=== PATIENT | female | born 1945 | race African-American/Black ===

== ENCOUNTER → 2019-02-25 | Outpatient (CLI) | payer MEDICARE, OTHER ==
[~2019-02-25] MED LIST: ASPI-1393 PO; ATOR20TA PO; BARIUM SULFATE 176 GM SUSP.RECON ONE; EZ-HD SUSPENSION(BARIUM SULFATE 340GM) PO ONE; FERR-63 PO; NEBI10TA2 PO; POTA20TA12 PO; PRAS10TA6 PO
== END | disposition home or self-care (01) ==
LOC: RAD 08:48
DX: R11.0 Nausea (principal); R13.10 Dysphagia, unspecified
CPT/HCPCS: 74246

== ENCOUNTER 2019-03-26 11:10 | Emergency (ER) | payer MEDICARE, OTHER ==
[~2019-03-26] VITALS: Ht 160 cm; Wt 64.0 kg
[~2019-03-26 11:10] MED LIST changes: -BARIUM SULFATE 176 GM SUSP.RECON ONE; -EZ-HD SUSPENSION(BARIUM SULFATE 340GM) PO ONE
[2019-03-26] MEDS ORDERED: METHYLPREDNISOLONE SOD SUCC 125 MG/2 ML VIAL IV ONE (12:30)
[2019-03-26] MEDS ORDERED: FAMOTIDINE 20MG/2ML VIAL IV ONE (12:30)
[2019-03-26] MEDS ORDERED: DIPHENHYDRAMINE 50MG/ML VIAL IV ONE (12:30)
[2019-03-26 13:16] LABS: BASOPHILS % 0.4 % (0.0-2.0); HEMATOCRIT. 41.4 % (36.0-48.0); HEMOGLOBIN. 13.8 g/dL (12.0-16.0); LYMPHOCYTES % 12.5 % (20.0-50.0); MEAN CORPUSCULAR HEMOGLOBIN 33.5 pg (28.0-32.0); MEAN CORPUSCULAR VOLUME 100.4 fL (81.0-99.0); MEAN PLATELET VOLUME 11.2 fl (7.4-10.4); MONOCYTES % 3.3 % (2.0-8.0); NEUTROPHILS % 83.8 % (40.0-76.0); PLATELET 129 x1000/uL (130-400); RED BLOOD CELL COUNT 4.12 mill/uL (4.2-5.4)
[2019-03-26 13:23] LABS: CHLORIDE 107 mEq/L (98-107)
[2019-03-26 14:30] VITALS: BP 182/92
== END 2019-03-26 14:44 | disposition home or self-care (01) ==
LOC: ER 11:10
DX: T78.49XA Other allergy, initial encounter (principal); X58.XXXA Exposure to other specified factors, initial encounter; K21.9 Gastro-esophageal reflux disease without esophagitis; E78.00 Pure hypercholesterolemia, unspecified; I10 Essential (primary) hypertension; Z98.890 Other specified postprocedural states; Z79.82 Long term (current) use of aspirin; Z79.899 Other long term (current) drug therapy; Z91.041 Radiographic dye allergy status; Z88.1 Allergy status to other antibiotic agents
CPT/HCPCS: 36415; 80053; 85025; 96374; 96375; 99283; J1200; J2930; J3490

== ENCOUNTER 2021-03-19 12:06 | Inpatient (IN) | payer MEDICARE, OTHER ==
[~2021-03-19] VITALS: Ht 160 cm; Wt 64.0 kg
[~2021-03-19 12:06] MED LIST changes: -ASPI-1393 PO; +ASPI-1497 PO
[2021-03-19] MEDS ORDERED: FUROSEMIDE 40MG/4ML VIAL IVP ONE (12:30)
[2021-03-19 12:42] LABS: BASOPHILS % 0.7 % (0.0-2.0); EOSINOPHILS % 0.3 % (0.0-5.0); HEMATOCRIT. 33.1 % (36.0-48.0); HEMOGLOBIN. 10.8 g/dL (12.0-16.0); LYMPHOCYTES % 31.2 % (20.0-50.0); MEAN CORPUSCULAR HEMOGLOBIN 33.2 pg (28.0-32.0); MEAN CORPUSCULAR VOLUME 101.7 fL (81.0-99.0); MEAN PLATELET VOLUME 11.4 fl (7.4-10.4); MONOCYTES % 9.1 % (2.0-8.0); NEUTROPHILS % 58.7 % (40.0-76.0); PLATELET 134 x1000/uL (130-400); RED BLOOD CELL COUNT 3.26 mill/uL (4.2-5.4); RED CELL DISTRIBUTION WIDTH 14.3 % (11.6-14.6)
[2021-03-19 12:50] LABS: CHLORIDE 105 mEq/L (98-107)
[2021-03-19] MEDS ORDERED: ALBUTEROL (0.083%) 2.5MG/3ML NEB HHN STA (12:54)
[2021-03-19] MEDS ORDERED: IPRATROPIUM BROMIDE (0.02%) 0.5MG/2.5ML NEB HHN STA (12:54)
[2021-03-19] MEDS ORDERED: FUROSEMIDE 20MG/2ML VIAL IVP SCH (14:00)
[2021-03-19] MEDS ORDERED: NEBIVOLOL HCL 5 MG TABLET PO SCH (14:00)
[2021-03-19] MEDS ORDERED: SODIUM BICARBONATE 100 MEQ in SODIUM CHLORIDE 0.45% 1,000 ML IV SCH (15:00)
[2021-03-19] MEDS: ASPIRIN 81MG TABLET PO SCH (16:25)
[2021-03-19] MEDS: NEBIVOLOL HCL 5 MG TABLET PO SCH ×2 (16:26→22:31)
[2021-03-19] MEDS ORDERED: METHYLPREDNISOLONE SOD SUCC 40 MG/ML VIAL IV SCH (20:00)
[2021-03-19] MEDS: ATORVASTATIN CALCIUM 20MG TABLET PO SCH (20:53)
[2021-03-19 21:38] VITALS: BP 193/75
[2021-03-19 21:40] VITALS: BP 193/75
[2021-03-19 21:50] VITALS: BP 191/75
[2021-03-19 22:28] VITALS: BP 181/67
[2021-03-19] MEDS ORDERED: ACETAMINOPHEN 325MG TABLET PO PRN (23:15)
[2021-03-19] MEDS ORDERED: MORPHINE SULFATE 2 MG/ML CPJ (NOT FOR IM USE) IV PRN (23:15)
[2021-03-19] MEDS ORDERED: CLONIDINE 0.1MG TABLET PO PRN (23:15)
[2021-03-19] MEDS ORDERED: ONDANSETRON HCL 4MG/2ML INJ IV PRN (23:15)
[2021-03-19] MEDS ORDERED: DOCUSATE SODIUM 100MG CAPSULE PO PRN (23:15)
[2021-03-19] MEDS ORDERED: NALOXONE HCL 0.4 MG/ML 1ML VIAL IV PRN (23:30)
[2021-03-20] VITALS (18 sets, daily range): BP systolic 104–194; BP diastolic 49–77
[2021-03-20] MEDS: IPRATROPIUM/ALBUTEROL 0.5-3(2.5)MG/3ML NEB HHN PRN ×4 (00:04→22:17)
[2021-03-20] MEDS ORDERED: METHYLPREDNISOLONE SOD SUCC 40 MG/ML VIAL IV SCH ×2 (00:30→06:00)
[2021-03-20] MEDS ORDERED: OLME1TAB90 PO (02:08)
[2021-03-20] MEDS ORDERED: DOXA8TAB81 PO (02:08)
[2021-03-20] MEDS ORDERED: FAMOTIDINE 20MG/2ML VIAL IV SCH (07:00)
[2021-03-20 07:03] LABS: BASOPHILS % 0.2 % (0.0-2.0); HEMATOCRIT. 35.5 % (36.0-48.0); HEMOGLOBIN. 11.5 g/dL (12.0-16.0); LYMPHOCYTES % 13.4 % (20.0-50.0); MEAN CORPUSCULAR HEMOGLOBIN 33.1 pg (28.0-32.0); MEAN CORPUSCULAR VOLUME 102.2 fL (81.0-99.0); MEAN PLATELET VOLUME 12.1 fl (7.4-10.4); NEUTROPHILS % 84.4 % (40.0-76.0); PLATELET 152 x1000/uL (130-400); RED BLOOD CELL COUNT 3.47 mill/uL (4.2-5.4)
[2021-03-20 07:08] LABS: CHLORIDE 105 mEq/L (98-107)
[2021-03-20 07:23] LABS: LDL CHOLESTEROL 53 mg/dL (5-100)
[2021-03-20 07:25] LABS: HDL CHOLESTEROL 54 mg/dL (40-59)
[2021-03-20] MEDS ORDERED: PHENYLEPHRINE 100MCG/ML 10ML VIAL (CATH LAB) IV ONE (07:39)
[2021-03-20] MEDS ORDERED: NICARDIPINE 100MCG/ML 10ML VIAL (CATH LAB) IV ONE (07:39)
[2021-03-20] MEDS ORDERED: NITROGLYCERIN 50MCG/ML 10ML VIAL (CATH LAB) IV ONE (07:39)
[2021-03-20] MEDS ORDERED: DIPHENHYDRAMINE 50MG/ML VIAL IV SCH (08:00)
[2021-03-20] MEDS ORDERED: ASPIRIN/SOD BICARB/CITRIC ACID 324MG TAB EFF ONE (08:11)
[2021-03-20] MEDS ORDERED: DIPHENHYDRAMINE 50MG/ML VIAL ONE (08:13)
[2021-03-20] MEDS ORDERED: HEPARIN 1000 UNITS/ML 10ML ONE (08:20)
[2021-03-20] MEDS ORDERED: IODIXANOL 320MG/ML 100 ML BOTTLE IV ONE (08:20)
[2021-03-20] MEDS ORDERED: MIDAZOLAM HCL 2 MG/2 ML VIAL ONE (08:21)
[2021-03-20] MEDS ORDERED: FENTANYL CITRATE/PF 50MCG/ML 2ML VIAL ONE (08:21)
[2021-03-20] MEDS ORDERED: LIDOCAINE HCL 1% 10 MG/ML 10ML VIAL ONE (08:28)
[2021-03-20 08:54] LABS: BG BASE EXCESS 2.8 mmol/L (-2.0-2.0); BG DEOXYHEMOGLOBIN 1.6 % (0.0-5.0); BG HCO3 ACT 27.8 mmol/L (22.0-26.0); BG METHEMOGLOBIN 0.3 % (0.0-1.5); BG OXYGEN SATURATION 98.4 % (92.0-98.5); BG OXYHEMOGLOBIN 98.1 % (94.0-97.0); BG PCO2 44.6 mmHg (35.0-45.0); BG PH 7.413 (7.350-7.450); BG PO2 134.8 mmHg (75.0-100.0); BG SAMPLE SITE RIGHT RADIAL; BG TOTAL HEMOGLOBIN 11.5 g/dL (12.0-18.0)
[2021-03-20] MEDS ORDERED: ONDANSETRON HCL 4MG/2ML INJ IV PRN (09:00)
[2021-03-20] MEDS ORDERED: SODIUM CHLORIDE 0.45% 1,000 ML IV ONE (09:00)
[2021-03-20] MEDS ORDERED: ACETAMINOPHEN 325MG TABLET PO PRN (09:00)
[2021-03-20] MEDS ORDERED: ATROPINE SULFATE 1MG/10ML SYR IV PRN (09:00)
[2021-03-20] MEDS ORDERED: ENOXAPARIN 40MG/0.4ML SYR SUBCUT SCH (09:00)
[2021-03-20] MEDS ORDERED: MORPHINE SULFATE 2 MG/ML CPJ (NOT FOR IM USE) IV PRN (09:00)
[2021-03-20] MEDS: ASPIRIN 81MG TABLET PO SCH (09:36)
[2021-03-20] MEDS: NEBIVOLOL HCL 5 MG TABLET PO SCH ×2 (09:37→21:00)
[2021-03-20] MEDS: AMLODIPINE 5MG TABLET PO SCH ×2 (10:30→21:00)
[2021-03-20 14:23] LABS: BG BASE EXCESS 0.6 mmol/L (-2.0-2.0); BG CARBOXYHEMOGLOBIN 0.3 % (0.5-1.5); BG DEOXYHEMOGLOBIN 5.5 % (0.0-5.0); BG HCO3 ACT 24.3 mmol/L (22.0-26.0); BG METHEMOGLOBIN 0.3 % (0.0-1.5); BG OXYGEN SATURATION 94.5 % (92.0-98.5); BG OXYHEMOGLOBIN 93.9 % (94.0-97.0); BG PCO2 35.7 mmHg (35.0-45.0); BG PH 7.451 (7.350-7.450); BG SAMPLE SITE RIGHT BRACHIAL; BG TOTAL HEMOGLOBIN 11.8 g/dL (12.0-18.0); BG VENT MODE NASAL CANNULA
[2021-03-20] MEDS: FUROSEMIDE 20MG/2ML VIAL IVP SCH (14:25)
[2021-03-20] MEDS: ATORVASTATIN CALCIUM 20MG TABLET PO SCH (21:09)
[2021-03-20] MEDS: BUDESONIDE 0.5MG/2ML NEB HHN SCH (22:16)
[2021-03-21] VITALS (16 sets, daily range): BP systolic 103–162; BP diastolic 45–84
[2021-03-21 06:52] LABS: BASOPHILS % 0.2 % (0.0-2.0); HEMATOCRIT. 32.1 % (36.0-48.0); HEMOGLOBIN. 10.9 g/dL (12.0-16.0); LYMPHOCYTES % 18.2 % (20.0-50.0); MEAN CORPUSCULAR HEMOGLOBIN 34.5 pg (28.0-32.0); MEAN CORPUSCULAR VOLUME 101.9 fL (81.0-99.0); MEAN PLATELET VOLUME 11.8 fl (7.4-10.4); MONOCYTES % 7.5 % (2.0-8.0); NEUTROPHILS % 74.1 % (40.0-76.0); PLATELET 152 x1000/uL (130-400); RED BLOOD CELL COUNT 3.15 mill/uL (4.2-5.4); RED CELL DISTRIBUTION WIDTH 14.3 % (11.6-14.6)
[2021-03-21] MEDS: ASPIRIN 81MG TABLET PO SCH (07:48)
[2021-03-21] MEDS: AMLODIPINE 5MG TABLET PO SCH (07:48)
[2021-03-21] MEDS: NEBIVOLOL HCL 5 MG TABLET PO SCH ×2 (07:48→21:54)
[2021-03-21] MEDS: ENOXAPARIN 40MG/0.4ML SYR SUBCUT SCH ×3 (07:49→12:31)
[2021-03-21] MEDS: FUROSEMIDE 20MG/2ML VIAL IVP SCH (07:52)
[2021-03-21] MEDS: BUDESONIDE 0.5MG/2ML NEB HHN SCH ×3 (08:09→22:40)
[2021-03-21] MEDS: IPRATROPIUM/ALBUTEROL 0.5-3(2.5)MG/3ML NEB HHN PRN ×2 (08:13→22:40)
[2021-03-21] MEDS: SILDENAFIL CITRATE 20MG TABLET PO SCH ×2 (13:40→21:01)
[2021-03-21] MEDS: ATORVASTATIN CALCIUM 20MG TABLET PO SCH (21:01)
[2021-03-22] VITALS (9 sets, daily range): BP systolic 121–148; BP diastolic 48–74
[2021-03-22] MEDS: SILDENAFIL CITRATE 20MG TABLET PO SCH ×2 (06:21→13:06)
[2021-03-22] MEDS: BUDESONIDE 0.5MG/2ML NEB HHN SCH (08:06)
[2021-03-22 08:53] LABS: BASOPHILS % 0.3 % (0.0-2.0); EOSINOPHILS % 1.8 % (0.0-5.0); HEMATOCRIT. 35.8 % (36.0-48.0); HEMOGLOBIN. 11.6 g/dL (12.0-16.0); LYMPHOCYTES % 21.1 % (20.0-50.0); MEAN CORPUSCULAR HEMOGLOBIN 33.2 pg (28.0-32.0); MEAN CORPUSCULAR VOLUME 102.3 fL (81.0-99.0); MEAN PLATELET VOLUME 10.6 fl (7.4-10.4); MONOCYTES % 6.3 % (2.0-8.0); NEUTROPHILS % 70.5 % (40.0-76.0); PLATELET 168 x1000/uL (130-400); RED BLOOD CELL COUNT 3.49 mill/uL (4.2-5.4); RED CELL DISTRIBUTION WIDTH 14.5 % (11.6-14.6)
[2021-03-22 09:05] LABS: CHLORIDE 105 mEq/L (98-107)
[2021-03-22] MEDS: NEBIVOLOL HCL 5 MG TABLET PO SCH (09:14)
[2021-03-22] MEDS: ASPIRIN 81MG TABLET PO SCH (09:24)
[2021-03-22] MEDS: ENOXAPARIN 40MG/0.4ML SYR SUBCUT SCH (09:24)
[2021-03-22] MEDS ORDERED: POTASSIUM CHLORIDE 20MEQ TABLET SR PO NR (10:15)
[2021-03-22] MEDS ORDERED: REV20 MT (11:53)
[2021-03-22] MEDS ORDERED: CLOP-31 PO (12:44)
[2021-03-22] MEDS ORDERED: FURO-152 PO (12:49)
== END 2021-03-22 15:13 | disposition home or self-care (01) | DRG 286 ==
LOC: ER 12:06 → ENRESERV 20:36 → 3WST 21:31
PROVIDERS: ADMIT Hospitalist; ATTEND Hospitalist
PROC: 4A023N7 Measurement of Cardiac Sampling and Pressure, Left Heart, Percutaneous Approach (ICD-10-PCS; principal; 2021-03-20)
PROC: B2111ZZ Fluoroscopy of Multiple Coronary Arteries using Low Osmolar Contrast (ICD-10-PCS; 2021-03-20)
PROC: B41J1ZZ Fluoroscopy of Other Lower Arteries using Low Osmolar Contrast (ICD-10-PCS; 2021-03-20)
DX: I11.0 Hypertensive heart disease with heart failure (principal); I50.43 Acute on chronic combined systolic (congestive) and diastolic (congestive) heart failure; J96.01 Acute respiratory failure with hypoxia; E44.1 Mild protein-calorie malnutrition; I42.1 Obstructive hypertrophic cardiomyopathy; E78.5 Hyperlipidemia, unspecified; I25.10 Atherosclerotic heart disease of native coronary artery without angina pectoris; I25.82 Chronic total occlusion of coronary artery; I27.21 Secondary pulmonary arterial hypertension; I34.0 Nonrheumatic mitral (valve) insufficiency; I70.0 Atherosclerosis of aorta; K21.9 Gastro-esophageal reflux disease without esophagitis; E78.00 Pure hypercholesterolemia, unspecified; R74.01 Elevation of levels of liver transaminase levels; R79.89 Other specified abnormal findings of blood chemistry; Z20.822 Contact with and (suspected) exposure to COVID-19; Z95.1 Presence of aortocoronary bypass graft; Z88.8 Allergy status to other drugs, medicaments and biological substances; Z91.041 Radiographic dye allergy status; Z79.82 Long term (current) use of aspirin; Z79.899 Other long term (current) drug therapy; Z95.5 Presence of coronary angioplasty implant and graft; Z82.49 Family history of ischemic heart disease and other diseases of the circulatory system; Z68.25 Body mass index [BMI] 25.0-25.9, adult
CPT/HCPCS: 36415; 36600; 71045; 71250; 80048; 80053; 80061; 82375; 82805; 83735; 83880; 84484; 85025; 87426; 93005; 93306; 93459; 93970; 94640; 97161; 99291; C1769; C1887; C1893; J1200; J1644; J1650; J1940; J2250; J2270; J2370; J2920; J3010; J3490; J7626; Q9967

== ENCOUNTER 2025-01-20 09:42 | Emergency (ER) | payer MEDICARE, OTHER ==
[~2025-01-20] VITALS: Ht 162.6 cm; Wt 60.0 kg
[~2025-01-20 09:42] MED LIST changes: +CLOP-31 PO; +FURO-152 PO; +NEBI10TA10 PO; -NEBI10TA2 PO; +OLME-24 PO; +POTA-194 PO; -POTA20TA12 PO; +PRAS10TA20 PO; -PRAS10TA6 PO; +REV20 MT
[2025-01-20 09:59] VITALS: O2SAT 100
[2025-01-20] MEDS: KETOROLAC 15MG/ML VIAL IV ONE (11:27)
[2025-01-20] MEDS: METOCLOPRAMIDE HCL 10MG/2ML VIAL IV ONE (11:27)
[2025-01-20] MEDS: SODIUM CHLORIDE 0.9% 1,000 ML IV ONE (11:27)
[2025-01-20 11:36] LABS: BASOPHILS % 0.7 % (0.0-2.0); EOSINOPHILS % 0.0 % (0.0-5.0); HEMATOCRIT. 35.6 % (36.0-48.0); HEMOGLOBIN. 11.5 g/dL (12.0-16.0); LYMPHOCYTES % 34.9 % (20.0-50.0); MEAN PLATELET VOLUME 10.7 fl (7.4-10.4); MONOCYTES % 12.9 % (2.0-8.0); NEUTROPHILS % 51.5 % (40.0-76.0); PLATELET 129 x1000/uL (130-400); RED BLOOD CELL COUNT 3.42 mill/uL (4.2-5.4); RED CELL DISTRIBUTION WIDTH 14.5 % (11.6-14.6)
[2025-01-20 11:53] LABS: CREATININE 1.9 mg/dL (0.6-1.0); UREA NITROGEN BLOOD 25.0 mg/dL (9-23)
[2025-01-20 12:14] VITALS: TEMP 36.9
[2025-01-20] MEDS ORDERED: LEVO-65 PO (12:33)
[2025-01-20] MEDS ORDERED: SULF1TAB44 PO (12:33)
[2025-01-20 13:16] VITALS: BP 140/40; PULSE 54; RESP 21; O2SAT 95
== END 2025-01-20 13:27 | disposition home or self-care (01) ==
LOC: ER 09:42
DX: R51.9 Headache, unspecified (principal); M54.2 Cervicalgia; T50.905A Adverse effect of unspecified drugs, medicaments and biological substances, initial encounter; E78.00 Pure hypercholesterolemia, unspecified; I11.9 Hypertensive heart disease without heart failure; Z79.899 Other long term (current) drug therapy; Z88.8 Allergy status to other drugs, medicaments and biological substances; Z95.5 Presence of coronary angioplasty implant and graft; X58.XXXA Exposure to other specified factors, initial encounter; Y93.89 Activity, other specified; Y92.89 Other specified places as the place of occurrence of the external cause; Y99.8 Other external cause status
CPT/HCPCS: 99284; 96374; 96361; 96375; 80048; 85025; 36415; J7030